=== PATIENT | male | born 1980 | race Caucasian/White ===

== ENCOUNTER 2021-04-04 16:08 | Emergency (ER) | payer MEDICARE, MEDICAID ==
[~2021-04-04] VITALS: Ht 193 cm; Wt 95.0 kg
[2021-04-04 16:20] VITALS: BP 177/93
[2021-04-04] MEDS ORDERED: LORA-269 PO (16:28)
[2021-04-04] MEDS ORDERED: LORazepam 1 MG tablet PO ONE (16:35)
== END 2021-04-04 17:03 | disposition home or self-care (01) ==
LOC: ER 16:09
DX: F41.9 Anxiety disorder, unspecified (principal); F03.90 Unspecified dementia, unspecified severity, without behavioral disturbance, psychotic disturbance, mood disturbance, and anxiety; Z88.8 Allergy status to other drugs, medicaments and biological substances; Z79.899 Other long term (current) drug therapy
CPT/HCPCS: 99283

== ENCOUNTER 2021-04-20 15:45 | Inpatient (IN) | payer MEDICARE, MEDICAID ==
[~2021-04-20] VITALS: Ht 182.9 cm; Wt 70.0 kg
[~2021-04-20 15:45] MED LIST: LORA-269 PO
[2021-04-20] MEDS ORDERED: normal saline 1000ML IV soln IVB ONE (15:55)
[2021-04-20 16:03] LABS: ABG BASE EXCESS -3.4 mmol/L (-2.0-2.0); ABG HCO3 22.6 mmol/L (22.0-26.0); ABG OXYGEN SATURATION 99.1 % (94-97); ABG PCO2 (T) 43.9 mmHg (35.0-48.0); ABG PO2 (T) 388.9 mmHg (75.0-100.0); ALLEN'S TEST POSITIVE; FCOHb 10.1 % (0.0-3.9); FLOW 15 L/min; FMetHb 0.2 % (0.0-1.5); FO2Hb 88.9 % (94-97); TOTAL HEMOGLOBIN 16.6 G/dl (14.0-18.0)
[2021-04-20 16:22] LABS: BASOPHILS # (AUTO) 0.1 X10'3 (0-0.2); BASOPHILS % (AUTO) 0.7 % (0-1); EOSINOPHILS # (AUTO) 0.4 X10'3 (0-0.9); EOSINOPHILS % (AUTO) 4.3 % (0-6); HEMATOCRIT 45.6 % (42.0-52.0); HEMOGLOBIN 15.9 g/dl (14.0-17.9); LYMPHOCYTES # (AUTO) 2.2 X10'3 (1.1-4.8); LYMPHOCYTES % (AUTO) 22.3 % (21-51); MEAN CORPUSCULAR HEMOGLOBIN 29.2 PG (27.0-31.0); MEAN CORPUSCULAR HGB CONC 34.9 g/dL (33.0-36.5); MEAN CORPUSCULAR VOLUME 83.7 FL (78-98); MEAN PLATELET VOLUME 7.7 FL (7.4-10.4); MONOCYTES # (AUTO) 0.4 X10'3 (0-0.9); MONOCYTES % (AUTO) 3.8 % (2-12); NEUTROPHILS # (AUTO) 6.8 X10'3 (1.8-7.7); NEUTROPHILS % (AUTO) 68.9 % (42-75); PLATELET COUNT 299 X10'3 (140-440); RED BLOOD COUNT 5.45 X10'6 (4.70-6.10); RED CELL DISTRIBUTION WIDTH 13.2 % (11.5-14.5); WHITE BLOOD COUNT 9.9 X10'3 (4.5-11.0)
[2021-04-20 16:37] LABS: ALANINE AMINOTRANSFERASE 23 U/L (12-78); ALBUMIN 4.3 G/DL (3.4-5.0); ALBUMIN/GLOBULIN RATIO 0.9 (1.1-1.5); ALKALINE PHOSPHATASE 251 IU/L (46-116); ANION GAP 8 (8-16); ASPARTATE AMINO TRANSFERASE 20 U/L (10-37); BILIRUBIN,TOTAL 0.3 MG/DL (0.1-1.0); BLOOD UREA NITROGEN 20 MG/DL (7-18); BUN/CREATININE RATIO 21.3 (5.4-32.0); CALCIUM 9.7 MG/DL (8.5-10.1); CHLORIDE 96 MMOL/L (99-107); CREATININE 0.94 MG/DL (0.60-1.10); ETHANOL < 0.010 GM/DL (0.0-0.010); MAGNESIUM 1.9 MG/DL (1.5-2.4); PHOSPHORUS 2.7 MG/DL (2.3-4.5); POTASSIUM 3.9 MMOL/L (3.5-5.1); SODIUM 131 MMOL/L (135-145); TOTAL PROTEIN 9.2 G/DL (6.4-8.2); eGFR 88 ML/MIN
[2021-04-20 16:39] LABS: GLUCOSE 464 MG/DL (70-104)
[2021-04-20] MEDS ORDERED: normal saline 1000ml 1,000 ML IV ONE (16:45)
[2021-04-20] MEDS ORDERED: insulin regular, human 10 units/0.1 ml syringe SQ ONE (16:45)
[2021-04-20] MEDS ORDERED: LORazepam 2 mg/ml vial IV ONE ×2 (17:05→21:50)
[2021-04-20 18:01] LABS: CLARITY,URINE CLEAR (Clear); COLOR,URINE YELLOW (Yellow); GLUCOSE, URINE >=1000 mg/dl (Neg); KETONES,URINE 15 mg/dl (Neg); LEUKOCYTE ESTERASE ,URINE NEGATIVE (Neg); NITRITES, URINE NEGATIVE (Neg); OCCULT BLOOD,URINE NEGATIVE (Neg); PROTEIN,URINE NEGATIVE (Neg); UROBILINOGEN,URINE 0.2 E.U/dL (0.2-1.0)
[2021-04-20 18:06] LABS: UA COLLECTION TYPE VOIDED
[2021-04-20 18:08] LABS: BACTERIA,URINE NONE SEEN /HPF (Neg); MUCUS STRANDS FEW /LPF (Neg); RBC,URINE NONE SEEN /HPF (0-2); SQUAMOUS EPITHELIAL CELL,UR NONE SEEN /LPF (FEW); WBC,URINE NONE SEEN /HPF (0-4)
[2021-04-20 18:15] LABS: URINE AMPHETAMINE SCREEN NEGATIVE (Neg); URINE BARBITUATE SCREEN NEGATIVE (Neg); URINE BENZODIAZEPINES SCREEN POSITIVE (Neg); URINE CANNABINOID SCREEN NEGATIVE (Neg); URINE COCAINE SCREEN NEGATIVE (Neg); URINE METHADONE SCREEN NEGATIVE (Neg); URINE OPIATE SCREEN NEGATIVE (Neg); URINE PHENCYCLIDINE SCREEN NEGATIVE (Neg)
[2021-04-20] MEDS ORDERED: potassium CL 10mEq/100ml bag 100 ML IV PRN (18:15)
[2021-04-20] MEDS ORDERED: potassium Cl 20 mEq SR tablet PO PRN ×2 (18:15)
[2021-04-20] MEDS ORDERED: magnesium hydroxide 30ml (MOM) UD suspension PO PRN (18:15)
[2021-04-20] MEDS ORDERED: acetaminophen 325mg tablet PO PRN ×2 (18:15)
[2021-04-20] MEDS ORDERED: acetaminophen 650mg rectal suppository RC PRN (18:15)
[2021-04-20] MEDS ORDERED: magnesium 4gm in 100ml NS 100 ML IV PRN (18:15)
[2021-04-20] MEDS ORDERED: magnesium 2GM in 50ml NS 50 ML IV PRN (18:15)
[2021-04-20] MEDS ORDERED: magnesium Cl slow-release 64mg tablet PO PRN (18:15)
[2021-04-20] MEDS ORDERED: bisacodyl 10mg suppository rectal RC PRN (18:15)
[2021-04-20] MEDS ORDERED: diphenhydrAMINE 25mg capsule PO PRN (18:15)
[2021-04-20] MEDS ORDERED: ondansetron/PF 4mg/2ml inj IV PRN (18:15)
[2021-04-20] MEDS ORDERED: mag hydrox/Alum hydrox/simeth 30ml oral suspension PO PRN (18:15)
[2021-04-20] MEDS: normal saline 1000ml 1,000 ML IV SCH (19:15)
[2021-04-20] MEDS ORDERED: INSU100C4 SQ (19:30)
[2021-04-20] MEDS ORDERED: INSU100V9 SQ (19:30)
[2021-04-20] MEDS ORDERED: BUPR1FIL3 SL (19:30)
--- NOTE | 2021-04-20 19:35 | NUR ---
ASSUMED CARE OF PATIENT, ALERT. 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 RESTLESS. LEFT AKA. AWAITING ROOM.
[2021-04-20] MEDS ORDERED: FLUV100T21 PO (19:50)
[2021-04-20] MEDS ORDERED: GABA-534 PO (19:50)
[2021-04-20] MEDS ORDERED: CHLO25TA22 PO (19:50)
[2021-04-20] MEDS ORDERED: CLON0.1T2 PO (19:50)
[2021-04-20] MEDS: docusate sod 100mg capsule PO SCH (20:00)
[2021-04-20] MEDS: K and/or MAG REPLACEMENT MC SCH (20:00)
[2021-04-20] MEDS: heparin, porcine 5000 units/ml vial SQ SCH (20:00)
--- NOTE | 2021-04-20 21:12 | NUR ---
FS 56 REPEAT 62 PAGED HOSPITALIST AT [phone]. ALERT, PER MOTHER BASELINE. GIVEN JUICE AND CRACKERS.
--- NOTE | 2021-04-20 21:21 | NUR ---
HOSPITALIST DR SALMERON CALLED V/O FOR RN ORDER HYPO/HYPERGLYCEMIC PROTOCOL
--- NOTE | 2021-04-20 21:23 | NUR ---
PT GIVEN JUICE FOR LOW BLOOD SUGAR.
[2021-04-20] MEDS ORDERED: DEXTROSE 15 GM of carb/4 tabs (each vial/BOTTLE has 4 tablets) PO PRN ×2 (21:25)
[2021-04-20] MEDS ORDERED: MESSAGE TO PHARMACY PO ONE (21:25)
[2021-04-20] MEDS ORDERED: dextrose 50%-water 50ml dispensing syringe IV PRN ×2 (21:25)
[2021-04-20] MEDS ORDERED: glucagon, human recombinant 1mg kit SUBCUT PRN (21:25)
[2021-04-20 21:39] LABS: ABG HCO3 23.4 mmol/L (22.0-26.0); ABG OXYGEN SATURATION 98.1 % (94-97); ABG PCO2 (T) 41.9 mmHg (35.0-48.0); ABG PO2 (T) 127.3 mmHg (75.0-100.0); ALLEN'S TEST POSITIVE; FMetHb 0.2 % (0.0-1.5); FO2Hb 95.9 % (94-97); PATIENT TEMPERATURE 36.9; TOTAL HEMOGLOBIN 15.2 G/dl (14.0-18.0)
--- NOTE | 2021-04-20 22:49 | NUR ---
Pt kyara Christianson [phone]
--- NOTE | 2021-04-20 22:56 | NUR ---
PATIENT ASLEEP IN ROOM AFTER GIVEN ATIVAN WAS RESTLESS, AWAITING ROOM FOR ADMISSION
--- NOTE | 2021-04-20 23:50 | NUR ---
PATIENT AGGITATED PULLING OFF EQUIPMENTS. REDIRECTABLE, MOTHER PRESENT. STILL AWAITING ROOM. GIVEN MEDS
[2021-04-21] MEDS: chlorproMAZINE 25mg tablet PO SCH ×4 (00:10→20:20)
--- NOTE | 2021-04-21 01:00 | NUR ---
PATIENT PLACED ON HOSPITAL BED, STILL AGGITATED/RESTLESS, FOLLOWS COMMAND. REDIRECTABLE. MOTHER PRESENT. UPDATED WAITING ON ROOMS.
--- NOTE | 2021-04-21 01:24 | NUR ---
PATIENT STILL AGGITATED AND RESTLESS. PULLED OFF EQUIPMENTS. REDIRECTED.
[2021-04-21] MEDS: ipratropium/albuterol 3ml nebule NEB SCH ×7 (01:49→23:00)
--- NOTE | 2021-04-21 01:49 | NUR ---
PAGED AND SPOKE WITH DR MCMANUS ABOUT PATIENT AGGITATION V/O HALDOL 2MG IM Q4HR PRN FOR AGGITATION.
[2021-04-21] MEDS ORDERED: haloperidol lactate 5mg/ml inj ONE (01:52)
--- NOTE | 2021-04-21 02:00 | NUR ---
PATIENT AGGITATION INCREASED, THROWING AND THRATCHING ROOM DR YUN TO ROOM ORDERED BENADRYL AND ATIVAN.
[2021-04-21] MEDS ORDERED: diphenhydrAMINE 50 mg/ml inj ONE (02:12)
[2021-04-21] MEDS ORDERED: LORazepam 2 mg/ml vial ONE (02:14)
[2021-04-21] MEDS ORDERED: diphenhydrAMINE 50 mg/ml inj IM ONE (02:25)
[2021-04-21] MEDS ORDERED: LORazepam 2 mg/ml vial IM ONE (02:25)
[2021-04-21] MEDS: haloperidol lactate 5mg/ml inj IM PRN ×2 (02:30→08:58)
[2021-04-21 03:30] VITALS: BP 137/78
--- NOTE | 2021-04-21 03:30 | NUR ---
The patient, MARCELLO GILLIS, 40 y/o, M admitted by HELGA MONTES MD, was given written information regarding hospital policies, unit procedures and contact persons. See Admission information. Patient arrived to unit via hospital bed with locked restraints, seems sedated at this time. Restraints was removed by transporter. No acute distress noted. Safey measures and comfort maintained. Will continue to monitor.
[2021-04-21] MEDS: normal saline 1000ml 1,000 ML IV SCH ×2 (04:15→14:15)
--- NOTE | 2021-04-21 06:32 | NUR ---
Problems reprioritized. Patient report given, questions answered & plan of care reviewed with Fanta RAY. Patient resting in bed in no acute distress.
--- NOTE | 2021-04-21 06:33 | NUR ---
Problems reprioritized. Patient report given, questions answered & plan of care reviewed with FLOR Menchaca.
[2021-04-21 06:58] LABS: BASOPHILS # (AUTO) 0.1 X10'3 (0-0.2); BASOPHILS % (AUTO) 0.8 % (0-1); EOSINOPHILS # (AUTO) 0.3 X10'3 (0-0.9); EOSINOPHILS % (AUTO) 3.5 % (0-6); HEMATOCRIT 40.5 % (42.0-52.0); HEMOGLOBIN 13.8 g/dl (14.0-17.9); LYMPHOCYTES # (AUTO) 2.7 X10'3 (1.1-4.8); LYMPHOCYTES % (AUTO) 27.9 % (21-51); MEAN CORPUSCULAR HEMOGLOBIN 28.5 PG (27.0-31.0); MEAN CORPUSCULAR HGB CONC 34.1 g/dL (33.0-36.5); MEAN CORPUSCULAR VOLUME 83.7 FL (78-98); MEAN PLATELET VOLUME 7.9 FL (7.4-10.4); MONOCYTES # (AUTO) 0.5 X10'3 (0-0.9); MONOCYTES % (AUTO) 5.7 % (2-12); NEUTROPHILS # (AUTO) 5.9 X10'3 (1.8-7.7); NEUTROPHILS % (AUTO) 62.1 % (42-75); PLATELET COUNT 262 X10'3 (140-440); RED BLOOD COUNT 4.83 X10'6 (4.70-6.10); RED CELL DISTRIBUTION WIDTH 13.3 % (11.5-14.5); WHITE BLOOD COUNT 9.6 X10'3 (4.5-11.0)
[2021-04-21 07:00] VITALS: BP 135/81
[2021-04-21] MEDS: fluvoxamine 25 MG tablet PO SCH ×2 (07:30→20:20)
[2021-04-21] MEDS: docusate sod 100mg capsule PO SCH ×2 (07:30→20:20)
[2021-04-21] MEDS: heparin, porcine 5000 units/ml vial SQ SCH ×2 (07:31→20:20)
[2021-04-21] MEDS: gabapentin 400mg capsule PO SCH (07:31)
--- NOTE | 2021-04-21 07:38 | NUR ---
MEDICATION STOPPED EARLY. PT CONFUSED AND KEEPS TAKING OFF MASK AND UNABLE TO USE MOUTH PIECE Addendum: 04/21/21 at 0739 by Yolande Galicia RT Amended: Links added.
[2021-04-21] MEDS: K and/or MAG REPLACEMENT MC SCH ×2 (08:00→20:00)
[2021-04-21] MEDS: cloNIDine 0.1 mg tablet PO SCH ×4 (08:25→20:20)
[2021-04-21 08:50] LABS: ALANINE AMINOTRANSFERASE 22 U/L (12-78); ASPARTATE AMINO TRANSFERASE 26 U/L (10-37); BILIRUBIN,TOTAL 0.4 MG/DL (0.1-1.0); BLOOD UREA NITROGEN 16 MG/DL (7-18); BUN/CREATININE RATIO 26.7 (5.4-32.0); GLUCOSE 285 MG/DL (70-104); PHOSPHORUS 3.9 MG/DL (2.3-4.5); eGFR > 90 ML/MIN
[2021-04-21 08:54] LABS: ALBUMIN 3.7 G/DL (3.4-5.0); ALBUMIN/GLOBULIN RATIO 0.9 (1.1-1.5); ALKALINE PHOSPHATASE 191 IU/L (46-116); CALCIUM 8.8 MG/DL (8.5-10.1); MAGNESIUM 1.8 MG/DL (1.5-2.4); TOTAL CARBON DIOXIDE 22.6 MMOL/L (24-32); TOTAL PROTEIN 7.9 G/DL (6.4-8.2)
[2021-04-21 08:55] LABS: CHOL/HDL RATIO 4.5 (0.00-4.99); CHOLESTEROL 152 MG/DL (0-200); HDL CHOLESTEROL 34 MG/DL (35-60); LDL CHOLESTEROL 101 MG/DL (50-100); TRIGLYCERIDES 100 MG/DL (20-135)
--- NOTE | 2021-04-21 10:01 | NUR ---
Report given to Yanira Ness RN
--- NOTE | 2021-04-21 10:07 | NUR ---
[place] Medication Administration: For this medication-pass time frame, all medication were reviewed, dispensed, administered and documented per hospital policy by Remedios RAY. [place] documentation: I have reviewed and agree with all interventions, assessments performed and documented by Remedios RAY.
--- NOTE | 2021-04-21 10:25 | NUR ---
Diabetes consult: Noted pt w/ hx of DM A1c 9 though pt was admitted w/ toxic encephalopathy r/t CO2 poisoning, currently A&O x 1 and confused per EMR. DM ed not appropriate at this time, will continue to monitor. Addendum: 04/21/21 at [address] Amended: Links added.
[2021-04-21 14:31] LABS: POTASSIUM 3.9 MMOL/L (3.3-5.1)
[2021-04-21] MEDS: insulin Lispro (HumaLOG) vial - multi-dose SQ SCH ×3 (14:35→18:25)
[2021-04-21 18:00] VITALS: BP 128/84
--- NOTE | 2021-04-21 18:52 | NUR ---
Patient in room PCU 3023. I have received report from Yanira RAY and had the opportunity to ask questions and assume patient care.
[2021-04-21] MEDS ORDERED: insulin glargine (Lantus) pen - multi-dose SQ SCH (21:00)
[2021-04-21 22:00] VITALS: BP 114/62
[2021-04-22] MEDS: normal saline 1000ml 1,000 ML IV SCH ×2 (00:15→10:15)
[2021-04-22 02:00] VITALS: BP 130/83
[2021-04-22] MEDS: ipratropium/albuterol 3ml nebule NEB SCH ×5 (03:00→20:13)
--- NOTE | 2021-04-22 06:25 | NUR ---
Problems reprioritized. Patient report given, questions answered & plan of care reviewed with Kassandra RAY.
[2021-04-22] MEDS: fluvoxamine 25 MG tablet PO SCH (08:00)
[2021-04-22] MEDS: cloNIDine 0.1 mg tablet PO SCH ×2 (08:00→16:41)
[2021-04-22] MEDS: K and/or MAG REPLACEMENT MC SCH (08:00)
[2021-04-22] MEDS: heparin, porcine 5000 units/ml vial SQ SCH (08:00)
[2021-04-22] MEDS: gabapentin 400mg capsule PO SCH (08:00)
[2021-04-22] MEDS: docusate sod 100mg capsule PO SCH (08:00)
[2021-04-22 12:47] LABS: BASOPHILS # (AUTO) 0.1 X10'3 (0-0.2); BASOPHILS % (AUTO) 0.7 % (0-1); EOSINOPHILS # (AUTO) 0.1 X10'3 (0-0.9); EOSINOPHILS % (AUTO) 1.9 % (0-6); HEMOGLOBIN 14.6 g/dl (14.0-17.9); LYMPHOCYTES # (AUTO) 1.5 X10'3 (1.1-4.8); LYMPHOCYTES % (AUTO) 19.8 % (21-51); MEAN CORPUSCULAR HEMOGLOBIN 28.1 PG (27.0-31.0); MEAN CORPUSCULAR HGB CONC 33.3 g/dL (33.0-36.5); MEAN CORPUSCULAR VOLUME 84.5 FL (78-98); MONOCYTES # (AUTO) 0.2 X10'3 (0-0.9); MONOCYTES % (AUTO) 3.2 % (2-12); NEUTROPHILS # (AUTO) 5.7 X10'3 (1.8-7.7); NEUTROPHILS % (AUTO) 74.4 % (42-75); PLATELET COUNT 247 X10'3 (140-440); RED CELL DISTRIBUTION WIDTH 13.6 % (11.5-14.5); WHITE BLOOD COUNT 7.6 X10'3 (4.5-11.0)
[2021-04-22] MEDS: chlorproMAZINE 25mg tablet PO SCH ×2 (13:00→14:28)
[2021-04-22 13:01] LABS: ALANINE AMINOTRANSFERASE 27 U/L (12-78); ALBUMIN 3.8 G/DL (3.4-5.0); ALBUMIN/GLOBULIN RATIO 0.9 (1.1-1.5); ALKALINE PHOSPHATASE 205 IU/L (46-116); ANION GAP 15 (8-16); ASPARTATE AMINO TRANSFERASE 24 U/L (10-37); BILIRUBIN,TOTAL 0.5 MG/DL (0.1-1.0); BLOOD UREA NITROGEN 15 MG/DL (7-18); BUN/CREATININE RATIO 23.1 (5.4-32.0); CHLORIDE 100 MMOL/L (99-107); CREATININE 0.65 MG/DL (0.60-1.10); GLUCOSE 265 MG/DL (70-104); MAGNESIUM 1.9 MG/DL (1.5-2.4); PHOSPHORUS 2.8 MG/DL (2.3-4.5); POTASSIUM 4.3 MMOL/L (3.5-5.1); SODIUM 135 MMOL/L (135-145); TOTAL CARBON DIOXIDE 20.1 MMOL/L (24-32); TOTAL PROTEIN 8.2 G/DL (6.4-8.2); eGFR > 90 ML/MIN
[2021-04-22] MEDS: insulin Lispro (HumaLOG) vial - multi-dose SQ SCH ×2 (13:22→14:32)
[2021-04-22 19:00] VITALS: BP 135/84
--- NOTE | 2021-04-22 20:54 | NUR ---
Pt discharge paperwork was signed and arranged with dayshift nurse prior to my arrival. Pt family came and picked him up prior to 1999 med pass.
== END 2021-04-22 19:30 | disposition home health service (06) | DRG 917 ==
LOC: ER 15:45 → ED HOLD 18:18 → PCU 3S 04-21 03:45
PROVIDERS: ADMIT Family Medicine; ATTEND Family Medicine
DX: T58.11XA Toxic effect of carbon monoxide from utility gas, accidental (unintentional), initial encounter (principal); G92.9 Unspecified toxic encephalopathy; M84.474A Pathological fracture, right foot, initial encounter for fracture; E11.65 Type 2 diabetes mellitus with hyperglycemia; I10 Essential (primary) hypertension; Z60.2 Problems related to living alone; Z20.822 Contact with and (suspected) exposure to COVID-19; E11.42 Type 2 diabetes mellitus with diabetic polyneuropathy; Z81.1 Family history of alcohol abuse and dependence; Z91.19 Patient's noncompliance with other medical treatment and regimen; Z87.820 Personal history of traumatic brain injury; Z88.8 Allergy status to other drugs, medicaments and biological substances; Z89.612 Acquired absence of left leg above knee; Y92.098 Other place in other non-institutional residence as the place of occurrence of the external cause
CPT/HCPCS: 36415; 36600; 70450; 71045; 73610; 73630; 80053; 80061; 80305; 80320; 81001; 82140; 82803; 82948; 83036; 83605; 83735; 84100; 84484; 85018; 85025; 87040; 87081; 87635; 93005; 94640; 94760; 96361; 96374; 97161; 97530; 99285; C9803; G0378; J1200; J1630; J1644; J1815; J2060; J7030; Q0161